=== PATIENT | female | born 1940 | race Caucasian/White ===

== ENCOUNTER → 2018-06-29 | Outpatient (CLI) | payer OTHER | LOC: M.ULTRA 14:35 | DX: M79.89 Other specified soft tissue disorders (principal); M79.605 Pain in left leg ==

== ENCOUNTER → 2018-07-05 | Outpatient (CLI) | payer OTHER | LOC: M.MRI 17:16 | DX: R90.82 White matter disease, unspecified (principal) ==

== ENCOUNTER 2018-12-03 21:48 | Emergency (ER) | payer OTHER ==
[~2018-12-03] VITALS: Ht 160 cm; Wt 67.6 kg
[2018-12-03 22:40] LABS: ABSOLUTE BASOPHILS 0.1 thou/uL (0.0-0.2); ABSOLUTE EOSINOPHILS 0.2 thou/uL (0.0-0.7); ABSOLUTE NEUTROPHILS 3.2 thou/uL (1.6-8.1); BASOPHILS 1.2 %; HEMATOCRIT 40.5 % (37.0-47.0); HEMOGLOBIN 13.9 gm/dL (12.0-15.0); LYMPHOCYTES 39.4 %; MCH 30.9 pg (26.0-34.0); MCHC 34.2 g/dL (28.0-37.0); MCV 90.2 fL (80.0-100.0); MONOCYTES 13.8 %; MPV 8.1 fl. (7.2-11.1); NUCLEATED RBCS 0 /100WBC; PLATELET COUNT* 290 thou/uL (150-400); POLYS 42.6 %; RBC 4.49 mil/uL (4.20-5.00); WBC 7.6 thou/uL (4.0-11.0)
[2018-12-03 22:42] LABS: URINE BILIRUBIN NEGATIVE (Negative); URINE BLOOD NEGATIVE (Negative); URINE CLARITY CLEAR; URINE COLOR YELLOW; URINE GLUCOSE-RANDOM NEGATIVE (Negative); URINE KETONES NEGATIVE (Negative); URINE LEUKOCYTES-REFLEX NEGATIVE (Negative); URINE NITRITE-REFLEX NEGATIVE (Negative); URINE PROTEIN NEGATIVE (Negative); URINE SPECIFIC GRAVITY <= 1.005 (1.005-1.030); URINE UROBILINOGEN 0.2 E.U./dl (0.2-1.0)
[2018-12-03 22:43] LABS: CALCIUM 10.1 mg/dL (8.5-10.1); CREATININE 0.8 mg/dL (0.6-1.3); POTASSIUM 3.6 mmol/L (3.5-5.1)
[2018-12-03 23:21] VITALS: BP 189/87
--- NOTE | 2018-12-06 08:36 | EKG ---
[place] [address] ELECTROCARDIOGRAM REPORT Name: NATIVIDAD MENDOZA Room: [facility]#: [id number] Admission: 12/03/18 Attend Phys: Discharge: 12/03/18 Date of : 44 Report #: [id number] THIS REPORT FOR: //name// [facility] ED Test Date: 2018-12-03 Test Time: 22:02:04 Pat Name: NATIVIDAD MENDOZA Department: Room: Gender: F Signal Operator: SHIRLENE : 1940 Requested By: Sumaya Lee Order Number: [id number] Gavin MD: Ryan Swain Measurements Intervals [place] Rate: 71 P: 14 NH: 161 QRS: -10 QRSD: 95 T: 38 QT: 391 QTc: 425 Interpretive Statements Sinus rhythm Abnormal R-wave progression, early transition Nonspecific ST segment depression Compared to ECG 04/29/2016 22:26:17 No significant changes Electronically Signed On 12-06-2018 8:36:43 CDT by Ryan Swain [email or web address] <ELECTRONICALLY SIGNED> By: Ryan Swain MD, [facility] 12/06/18 0836 01 01 Ryan Swain MD, FACC /EPI
== END 2018-12-03 23:20 | disposition home or self-care (01) ==
LOC: M.ERS 21:48
PROVIDERS: Emergency Medicine
DX: I10 Essential (primary) hypertension (principal); K21.9 Gastro-esophageal reflux disease without esophagitis; Z88.0 Allergy status to penicillin; Z88.1 Allergy status to other antibiotic agents; Z88.6 Allergy status to analgesic agent; Z88.8 Allergy status to other drugs, medicaments and biological substances; Z90.49 Acquired absence of other specified parts of digestive tract